=== PATIENT | female | born 1960 | race Caucasian/White ===

== ENCOUNTER → 2019-05-29 | Outpatient (CLI) | payer MEDICARE, OTHER ==
--- NOTE | 2019-05-31 15:25 | REP ---
PET/CT: HISTORY: Diagnosing lung cancer. COMPARISONS: Comparison CT chest [facility] dated March 24, 2019 describes a few subcentimeter noncalcified nodules in the right middle lobe measuring up to 8 mm. TECHNIQUE: 52 minutes following the intravenous injection of a 8.61 mCi dose of F-18 FDG, three-dimensional PET scintigraphy is acquired from the skull base to the proximal thighs. Triplanar noncontrast CT scanning is acquired through the same anatomic range for attenuation correction, and image registration with scan parameters optimized to minimize radiation exposure to the patient. PET scintigraphy and CT datasets were fused and displayed on a workstation with multiplanar and projection display capability. PET/CT FINDINGS: There is no hypermetabolic uptake in the area of the nodular opacities seen in the right middle lobe on recent chest CT. Maximum standard uptake value at the level of the largest of these nodular opacities is 1.82 which is not hypermetabolic. There is no abnormal intrathoracic hypermetabolic uptake seen. No abnormal hilar or mediastinal hypermetabolic uptake is noted. There is an aberrant right subclavian artery noted incidentally. Head and neck soft tissues are unremarkable. In the abdomen and pelvis, normal distribution of radiotracer is seen to the liver, spleen, gastrointestinal, and genitourinary tracts. No abnormal abdominal or pelvic hypermetabolic uptake is appreciated. IMPRESSION: No abnormal hypermetabolic uptake. Chest CT followup recommended. Electronically Signed by Murali Rehman MD 05/31/2019 07:46 P
== END ==
LOC: M PLARAD 11:30
PROVIDERS: ATTEND Family Medicine
DX: Q25.48 Anomalous origin of subclavian artery (principal); R91.8 Other nonspecific abnormal finding of lung field; R59.0 Localized enlarged lymph nodes
CPT/HCPCS: 78815; A9552

== ENCOUNTER → 2020-05-15 | Outpatient (CLI) | payer MEDICARE, OTHER ==
--- NOTE | 2020-05-25 16:44 | REP ---
CT CHEST WITHOUT CONTRAST HISTORY: Other nonspecific abnormal finding of lung field. COMPARISON: Comparison chest CT study is from October 22, 2019. Comparison PET/CT May 29, 2019. Also reviewed are [facility] chest CT images from March 24, 2019. CT FINDINGS: There is a nodular density in the right middle lobe again noted measuring 8 mm in greatest transverse dimension. There are two adjacent tiny satellite nodules. This finding is unchanged from October 22, 2019, and essentially unchanged from March 24, 2019. There is a new nodular opacity with some adjacent satellite nodules in the periphery of the right lower lobe, 7 mm in diameter. This is seen on page 49 of 98 in series 201 of todays study. The right middle lobe nodule is seen on pages 40 through 45 of 98 in series 201. The right lower lobe nodule is increased in size from its appearance on March 24, 2019, when it was only 3-4 mm. No other new or increased nodule is appreciated. No infiltrate is seen. Incidental note is again made of aberrant right subclavian artery. No hilar or mediastinal mass or adenopathy is seen. There is some left coronary artery vascular calcification. Normal adrenal glands are seen. There is an annular calcification adjacent to the gallbladder in the region of the endy. This may be a gallstone. There are some other calcifications in the gallbladder wall. IMPRESSION: Stable 8 mm irregular nodular opacity right middle lobe. 7 mm nodular density in the right lower lobe increased from the prior study. Aberrant right subclavian artery. MTDD
== END ==
LOC: M RAD 10:21
PROVIDERS: ATTEND Internal Medicine Pulmonary Disease
DX: R91.8 Other nonspecific abnormal finding of lung field (principal); I25.10 Atherosclerotic heart disease of native coronary artery without angina pectoris; Q27.8 Other specified congenital malformations of peripheral vascular system

== ENCOUNTER → 2020-05-19 | Outpatient (REF) | payer MEDICARE, OTHER | LOC: M LAB REF 17:25 | PROVIDERS: ATTEND Internal Medicine Pulmonary Disease | DX: R91.8 Other nonspecific abnormal finding of lung field (principal) ==

== ENCOUNTER → 2021-03-01 | Outpatient (CLI) | payer MEDICARE, OTHER ==
--- NOTE | 2021-03-01 15:12 | REP ---
INDICATION: ABN FINDINGS OF LUNG FIELD. COMPARISON: 05/15/2020, 10/22/2019, 03/24/2019 CT TECHNIQUE: Noncontrast scanning through the chest with the coronal and sagittal reconstructions. FINDINGS: In the superior segment of the right lower lobe medially in the subpleural region is a ground-glass 1.8 cm new opacity compared to the 05/15/2020 exam. The lateral segment right middle lobe 10 mm nodule is unchanged there are a few tiny satellite nodules adjacent to it also stable. The peripheral of right lower lobe pleural based nodule in the lateral basal segment on previous study is nearly completely resolved with a few residual areas of scarring. I do not see any lingular nodules. The left lower lobe and remainder of the left upper lobe or unremarkable. No pleural effusion, pleural thickening or apical pleural scarring. Heart is not enlarged. There is no pericardial thickening or effusion. See small hiatal hernia. Calcifications in coronary arteries noted. Few calcifications in the aortic arch and descending portion. There is an aberrant right subclavian artery coursing behind the trachea as an anatomic variation. No aortic aneurysm. No adenopathy mediastinum, nayla, axillary or supraclavicular regions. Bone windows show sclerotic endplate changes with vacuum phenomenon at T11-12. There is endplate depression of L1. This appears unchanged. Upper abdomen shows no interval change. That portion of liver, spleen, adrenal glands, upper poles kidneys pancreas unremarkable. Gallbladder shows no calcified stone calcified node near the gallbladder fossa. IMPRESSION: 1. There is a new 18 mm ground-glass density in the superior segment of the right lower lobe paraspinal region best seen on image 59. No finding in this region on prior scan on May 2020. 2. Right middle lobe and nodule and adjacent daughter nodules unchanged, largest 8 mm. 3. Right lower lobe pleural based nodule is resolved since the previous study in the lateral basal segment near the mid axillary line. No other significant or new finding. Given a lung RADS category 3 probably benign lesion of the ground-glass opacity in the superior segment of the right lower lobe, follow-up with CT in 6 months is recommended. There is a pattern of evolving and resolving opacities in the lung sahu over the past few years with some stable nodules as well. <Electronically signed by David Ellis > 03/01/21 [id number]
== END ==
LOC: M PLAIMG 10:57
PROVIDERS: ATTEND Internal Medicine Pulmonary Disease
DX: R91.8 Other nonspecific abnormal finding of lung field (principal); I70.0 Atherosclerosis of aorta; K44.9 Diaphragmatic hernia without obstruction or gangrene

== ENCOUNTER → 2021-10-19 | Outpatient (CLI) | payer MEDICARE, OTHER | LOC: M RAD 13:52 | PROVIDERS: ATTEND Internal Medicine Pulmonary Disease | DX: R91.8 Other nonspecific abnormal finding of lung field (principal) ==

== ENCOUNTER → 2023-01-02 | Outpatient (CLI) | payer MEDICARE, OTHER | LOC: M RAD 13:30 | PROVIDERS: ATTEND Internal Medicine Pulmonary Disease | DX: Z12.2 Encounter for screening for malignant neoplasm of respiratory organs (principal); Z87.891 Personal history of nicotine dependence; R91.8 Other nonspecific abnormal finding of lung field; I70.0 Atherosclerosis of aorta; I25.10 Atherosclerotic heart disease of native coronary artery without angina pectoris ==

== ENCOUNTER → 2024-01-16 | Outpatient (CLI) | payer MEDICARE, OTHER | LOC: M RAD 14:41 | PROVIDERS: ATTEND Internal Medicine Pulmonary Disease | DX: Z12.2 Encounter for screening for malignant neoplasm of respiratory organs (principal); Z87.891 Personal history of nicotine dependence; R91.1 Solitary pulmonary nodule; I25.10 Atherosclerotic heart disease of native coronary artery without angina pectoris; I70.0 Atherosclerosis of aorta; Z90.49 Acquired absence of other specified parts of digestive tract ==